=== PATIENT | male | born 1995 | race Caucasian/White ===

== ENCOUNTER 2017-06-06 11:51 | Emergency (ER) | payer BC ==
[~2017-06-06] VITALS: Ht 200.7 cm; Wt 115.0 kg
[2017-06-06 12:01] VITALS: TEMP 37.3; Ht 200.7 cm; Wt 115.0 kg
[2017-06-06] MEDS ORDERED: RIVA1TAB4 PO (12:11)
--- NOTE | 2017-06-06 12:59 | EMERGENCY ROOM VISIT NOTE ---
ED Visit Note First contact with patient: 12:30 CHIEF COMPLAINT: Pilonidal abscess HISTORY OF PRESENT ILLNESS: This 21-year-old male patient presents to the emergency department 2 days after they noticed a hard, red, tender area on the back on the just superior to the buttocks. The patient does report history of pilonidal abscess in the same location approximately one year ago. He states he did have this drained outpatient [facility]. He states abscess at that time was nowhere near the side that just today. It is slowly getting larger, more painful and tender. No fever, chills, or loss of appetite. There has been minimal drainage from the area starting today. There was no injury to the area preceding the infection. They rate the pain as throbbing and 8/10. Tetanus shot is up to date. They have tried nothing for pain relief. The patient is not diabetic. The patient is on Xarelto for previous PE which was not approximate 4-5 months ago. REVIEW OF SYSTEMS: A 10-system review of systems was performed with positives and pertinent negatives listed in the history of present illness. All other systems were reviewed and are negative. ALLERGIES: None MEDICATIONS: Xarelto PMH: Pulmonary Embolus SOCIAL HISTORY: Lives locally with family. He denies drug, alcohol, tobacco use. PHYSICAL EXAM: Vital Signs: Reviewed Nurse's notes, vital signs stable. GENERAL : 21-year-old male, no acute distress, non toxic in appearance, well-developed well-nourished. SKIN: There is an erythematous indurated area on the low back in the middle, just superior to the buttocks which measures about 9 cm in diameter. It is fluctuant but there is no pointing or drainage. There is a zone of inflammation around it but no lymphangitis. Capillary refill less than 2 seconds. MUSCULOSKELETAL: There is no limitation of the range of motion of the back or lower extremities. EMERGENCY DEPARTMENT COURSE: I examined the patient. Verbal consent was obtained to perform the procedure. After saline and Betadine cleansing and 6 mL of 1% buffered lidocaine with epinephrine anesthesia, the abscess was incised with a number 11 scalpel blade. A large amount of purulent material was released with more expressed by pressure. A swab was obtained for culture. 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 The abscess cavity was then copiously irrigated with sterile saline under pressure. The area was then packed with bacitracin soaked packing. The area was cleaned with sterile saline and dressed with bacitracin and a bulky bandage. The patient tolerated the procedure well. The patient was discharged home in stable condition. DIFFERENTIAL DIAGNOSIS: Abscess, cellulitis, sepsis, cyst, and others. DIAGNOSIS: Pilonidal abscess DISCHARGE INSTRUCTIONS & TREATMENT: You were seen in the Emergency Department for Incision and Drainage of your pilonidal abscess. You will NEED to return to the Emergency Department or see the surgeon to have the packing removed/changed in 48 hours. This packing is NOT dissolvable and WILL need to be removed by a health care provider. Try to leave the packing in place until you return to the Emergency Department or general surgeon. If the packing and bandages are saturated in 24 hours, return to the ED to have packing removed and changed at that time. He should change the outer bandage several times a day, especially if it becomes saturated with pus or blood. You were prescribed Keflex to be taken 4 times daily and Bactrim to be taken twice daily. Both of these medications are antibiotics. Stop these medications and contact a medical provider if you were to develop any significant adverse side effects including: wheezing, shortness of breath, passing out, vomiting, or a diffuse rash. Always take antibiotics as directed and COMPLETE the ENTIRE course regardless of the improvement of your symptoms. Do not soak the wound in water. Look for signs of infection of the wound including: increased pain, swelling, foul discharge, streaking, or increased temperature. If any of these are noticed you should return to the Emergency Department for further assessment and treatment. As with any laceration you may have received nerve damage to the surrounding tissues. This damage may or may not be permanent. For pain control, you can use the following [id number] medicines (if >12 yo): - Regular strength (325mg/tab) Tylenol (acetaminophen) 2 tabs every 4-6 hours as needed. Do not exceed 9 tablets in a 24 hour period. Avoid taking more than 3 grams (3000 mg) of Tylenol per day. This includes any other sources of acetaminophen you may take on a regular basis. - Regular strength (200 mg/tab) Advil (ibuprofen) 2-3 tabs every 4-6 hours as needed. Do not exceed a dose of 3200 mg per day. Return to the emergency department if your symptoms worsen despite treatment course outlined above. Current/Historical Medications Scheduled Cephalexin Monohydrate (Keflex), 500 MG PO QID Rivaroxaban (Xarelto), 20 MG PO DAILY Sulfa/Trimethoprim (Bactrim Ds 800MG/160MG), 1 TAB PO BID Allergies Uncoded Allergies: NKDA (Allergy, Unknown, 01/05/03) Vital Signs Date Time Temp Pulse Resp B/P (MAP) Pulse Ox O2 Delivery O2 Flow Rate FiO2 06/06/17 13:40 105 16 166/85 98 06/06/17 12:01 37.3 102 16 158/95 97 Room Air Departure Information Impression Primary Impression: Pilonidal abscess Dispostion Home / Self-Care Condition GOOD Prescriptions Cephalexin Monohydrate (Keflex) 500 Mg Cap 500 MG PO QID for 10 Days, #40 CAP Prov: Elena Santillan PA-C 06/06/17 Sulfa/Trimethoprim (Bactrim Ds 800MG/160MG) Tab 1 TAB PO BID for 10 Days, #20 TAB Prov: Elena Santillan PA-C 06/06/17 Referrals Pierce Mg MD (PCP) Dung Nieto MD Patient Instructions ED Cyst Pilonidal Infected [facility] Additional Instructions You were seen in the Emergency Department for Incision and Drainage of your pilonidal abscess. You will NEED to return to the Emergency Department or see the surgeon to have the packing removed/changed in 48 hours. This packing is NOT dissolvable and WILL need to be removed by a health care provider. Try to leave the packing in place until you return to the Emergency Department or general surgeon. If the packing and bandages are saturated in 24 hours, return to the ED to have packing removed and changed at that time. He should change the outer bandage several times a day, especially if it becomes saturated with pus or blood. You were prescribed Keflex to be taken 4 times daily and Bactrim to be taken twice daily. Both of these medications are antibiotics. Stop these medications and contact a medical provider if you were to develop any significant adverse side effects including: wheezing, shortness of breath, passing out, vomiting, or a diffuse rash. Always take antibiotics as directed and COMPLETE the ENTIRE course regardless of the improvement of your symptoms. Do not soak the wound in water. Look for signs of infection of the wound including: increased pain, swelling, foul discharge, streaking, or increased temperature. If any of these are noticed you should return to the Emergency Department for further assessment and treatment. As with any laceration you may have received nerve damage to the surrounding tissues. This damage may or may not be permanent. For pain control, you can use the following [id number] medicines (if >12 yo): - Regular strength (325mg/tab) Tylenol (acetaminophen) 2 tabs every 4-6 hours as needed. Do not exceed 9 tablets in a 24 hour period. Avoid taking more than 3 grams (3000 mg) of Tylenol per day. This includes any other sources of acetaminophen you may take on a regular basis. - Regular strength (200 mg/tab) Advil (ibuprofen) 2-3 tabs every 4-6 hours as needed. Do not exceed a dose of 3200 mg per day. Return to the emergency department if your symptoms worsen despite treatment course outlined above.
[2017-06-06] MEDS ORDERED: LIDOCAINE/EPINEPHRINE 1% 20 ML VIAL INFIL ONE (13:00)
[2017-06-06] MEDS ORDERED: SULF800T23 PO (13:33)
[2017-06-06] MEDS ORDERED: CEPH500C PO (13:33)
[2017-06-06 13:40] VITALS: BP 166/85; PULSE 105; O2SAT 98
== END 2017-06-06 13:41 | disposition home or self-care (01) ==
LOC: C.EDB 11:53 → C.EDD 13:41
DX: L05.91 Pilonidal cyst without abscess (principal); Z86.711 Personal history of pulmonary embolism; Z79.899 Other long term (current) drug therapy

== ENCOUNTER 2017-06-08 10:56 | Emergency (ER) | payer BC ==
[~2017-06-08] VITALS: Ht 200.7 cm; Wt 105.4 kg
[~2017-06-08 10:56] MED LIST: CEPH500C PO; RIVA1TAB4 PO; SULF800T23 PO
[2017-06-08 10:57] VITALS: TEMP 36.7; Ht 200.7 cm; Wt 105.4 kg
[2017-06-08 11:42] VITALS: BP 144/91; PULSE 85; O2SAT 97
--- NOTE | 2017-06-08 16:19 | EMERGENCY ROOM VISIT NOTE ---
ED Visit Note First contact with patient: 11:15 CHIEF COMPLAINT: Cyst follow-up. HISTORY OF PRESENT ILLNESS: Mr. zAevedo is a 21-year-old white male who ambulates into the ED accompanied by his mother requesting recheck of a pilonidal abscess that was drained 2 days ago. Patient reports he continues to have discomfort in the area of his pilonidal abscess but much less since its been drained. He describes his pain as a throbbing and pressure sensation. He rates his discomfort 5/10. His pain is nonradiating. His pain worsens with palpation and sitting on the area. He has not identified any alleviating factors related to the pain. He has been using [id number] medications with mild relief of his discomfort. He denies any associated symptoms including fevers, chills, sweats, increasing redness/ swelling, worsening pussy drainage from his abscess, chest pain, shortness of breath, decreased appetite, abdominal pain, nausea/vomiting. PHYSICAL EXAM: Vital Signs: Date Time Temp Pulse Resp B/P (MAP) Pulse Ox O2 Delivery O2 Flow Rate FiO2 06/08/17 11:42 85 16 144/91 97 06/08/17 10:57 36.7 84 18 140/87 97 Room Air GENERAL: 21-year-old male in mild distress due to pain, nontoxic-appearing, afebrile and hemodynamically stable. NEUROLOGICAL: Awake, alert and oriented to person, place and time. Answering questions appropriately and following commands. Normal gait. SKIN: Warm, dry and pink. BUTTOCKS: Patient has a abscess over the central distal sacral area. There is still mild erythema around the wound that is a dull red and not bright. There is no warmth to this area. With palpation he does have mild oozing of purulent drainage from his incision. He does report that the packing fell out this morning. There is no lymphangitis. The area remains tender to palpation but the patient feels there is no spreading of his erythema. None of the tissues in the area appear cellulitic. ED COURSE: Patient is assessed as noted above. I did repeat bandage the wound with gauze and tape to prevent drainage from to his closed. Patient was educated about today's findings and instructed on his treatment plan ; he verbalizes understanding and agreement with this plan. DISPOSITION: Patient discharged home in stable condition accompanied by his mother; prior to departure he was reassessed and subjectively reported he was feeling better. CLINICAL IMPRESSION: Abscess recheck. PLAN: Patient was encouraged to continue antibiotics as prescribed until completed. Patient was encouraged that he could wash his wound but to redress it after washing. Patient was encouraged to have someone look at his wound every day and to make sure that there is no increasing redness or swelling outside the area of demarcation, red streaking, worsening puslike drainage or fevers. Patient was encouraged to follow-up with his primary care provider for recheck at the end of the course of his antibiotics. Patient was educated on worsening signs of infection and encouraged return to the ED for worsening signs of infection, uncontrolled pain or any new/ concerning symptoms.
== END 2017-06-08 11:43 | disposition home or self-care (01) ==
LOC: C.EDB 10:57 → C.EDD 11:43
DX: L05.91 Pilonidal cyst without abscess (principal)